=== PATIENT | female | born 1990 | race Caucasian/White ===

== ENCOUNTER 2017-01-02 09:08 | Emergency (ER) | payer OTHER ==
[~2017-01-02] VITALS: Ht 154.9 cm; Wt 64.9 kg
[2017-01-02 09:13] VITALS: TEMP 36.7; Ht 154.9 cm; Wt 64.9 kg
--- NOTE | 2017-01-02 09:58 | DIAGNOSTIC IMAGING REPORT ---
CHEST ONE VIEW PORTABLE CLINICAL HISTORY: chest pain dyspnea COMPARISON STUDY: No previous studies for comparison. FINDINGS: The bones soft tissues and hemidiaphragms are normal. The cardiomediastinal silhouette is normal. The lungs are clear. The pulmonary vasculature is normal. IMPRESSION: Negative chest. Electronically signed by: Ross Dong M.D. 01/02/2017 9:57 AM Dictated Date/Time: 01/02/2017 9:57 AM
[2017-01-02 10:41] LABS: HEMATOCRIT 36.7 % (37-47); MEAN CELL VOLUME 90.4 fL (80-100); MEAN CORPUSCULAR HEMOGLOBIN 31.8 pg (25-34); MEAN CORPUSCULAR HGB CONC 35.1 g/dl (32-36); MEAN PLATELET VOLUME 9.3 fL (7.4-10.4); PLATELET COUNT 310 K/uL (130-400); RED BLOOD COUNT 4.06 M/uL (4.2-5.4); WHITE BLOOD COUNT 11.95 K/uL (4.8-10.8)
[2017-01-02 10:54] LABS: INR 1.1 (0.9-1.1); PROTHROMBIN TIME (PATIENT) 11.9 SECONDS (9.0-12.0)
[2017-01-02 11:02] LABS: ALT/SGPT 17 U/L (12-78); AST/SGOT 7 U/L (15-37); BLOOD UREA NITROGEN 8 mg/dl (7-18); BUN/CREATININE RATIO 12.9 (10-20); CALCIUM 9.1 mg/dl (8.5-10.1); CARBON DIOXIDE 28 mmol/L (21-32); CHLORIDE 106 mmol/L (98-107); CREATININE 0.63 mg/dl (0.60-1.20); GLUCOSE 75 mg/dl (70-99); POTASSIUM 3.9 mmol/L (3.5-5.1); SODIUM 141 mmol/L (136-145)
[2017-01-02 11:06] LABS: ALB/GLOB RATIO 1.1 (0.9-2); ALKALINE PHOSPHATASE 71 U/L (45-117)
--- NOTE | 2017-01-02 12:24 | EMERGENCY ROOM VISIT NOTE ---
History Report prepared by Dickson: Kristen Spicer Under the Supervision of: Dr. Vlad Mendoza D.O. First contact with patient: 09:57 Chief Complaint: CARDIAC ASSESSMENT Stated Complaint: CHEST PAIN,RAPID HEARTBEAT History of Present Illness The patient is a 26 year old female who presents to the Emergency Room with complaints of persistent chest pain that began Friday. She currently rates her discomfort as a 2/10 in severity and she describes her pain as a jabbing pain. The patient states that since Friday she has been experiencing chest pain and tachycardia. She states that she consulted her PCP today and was instructed to come to the emergency department for further work up. The patient denies any history of blood clots or family history of blood clots. She denies any active medical problems. The patient denies any abdominal pain today. Source of History: patient Onset: Friday Position: chest Symptom Intensity: 2/10 Quality: other (jabbing) Timing: other (persistent) Associated Symptoms: No abdominal pain Note: Associated Symptoms: tachycardia Review of Systems See HPI for pertinent positives & negatives. A total of 10 systems reviewed and were otherwise negative. Past Medical & Surgical Medical Problems: (1) Bronchitis Surgical Problems: (1) Previous section Family History Diabetes mellitus Hypertension Social History Smoking Status: Former Smoker Alcohol Use: none Drug Use: none Marital Status: single Housing Status: lives alone Occupation Status: employed Current/Historical Medications No Active Prescriptions or Reported Meds Allergies Coded Allergies: Metronidazole (Verified Allergy, Unknown, PANREATITIS, 01/02/17) Nitrofuran Derivatives (Verified Allergy, Unknown, PANCREATITIS, 01/02/17) Physical Exam Vital Signs Date Time Temp Pulse Resp B/P Pulse Ox O2 Delivery O2 Flow Rate FiO2 01/02/17 10:48 66 20 93/51 100 Room Air 01/02/17 10:35 98 Room Air 01/02/17 10:35 98 01/02/17 10:25 69 01/02/17 09:13 36.7 70 16 100/66 97 Room Air Physical Exam CONSTITUTIONAL/VITAL SIGNS: Reviewed / noted above. GENERAL: Non-toxic in appearance. INTEGUMENTARY: Warm, dry, and [place]. HEAD: Normocephalic. EYES: without scleral icterus or trauma. ENT/OROPHARYNX: clear and moist. LYMPHADENOPATHY/NECK: Is supple without lymphadenopathy or meningismus. RESPIRATORY: Lungs clear and equal. CARDIOVASCULAR: Regular rate and rhythm. GI/ABDOMEN: Soft and nontender. No organomegaly or pulsatile mass. No rebound or guarding. Normal bowel sounds. EXTREMITIES: Warm and well perfused. BACK: No CVA tenderness. NEUROLOGICAL: Intact without focal deficits. PSYCHIATRIC: normal affect. MUSCULOSKELETAL: Normally developed with good muscle tone. Medical Decision & Procedures ER Provider Diagnostic Interpretation: X ray results and stated below per my interpretation and radiology interpretation. CHEST ONE VIEW PORTABLE CLINICAL HISTORY: chest pain dyspnea COMPARISON STUDY: No previous studies for comparison. FINDINGS: The bones soft tissues and hemidiaphragms are normal. The cardiomediastinal silhouette is normal. The lungs are clear. The pulmonary vasculature is normal. IMPRESSION: Negative chest. Electronically signed by: Ross Dong M.D. 01/02/2017 9:57 AM Dictated Date/Time: 01/02/2017 9:57 AM Laboratory Results 01/02/17 10:11 01/02/17 10:11 Test 01/02/17 10:11 01/02/17 10:23 Red Blood Count 4.06 M/uL (4.2-5.4) Mean Corpuscular Volume 90.4 fL (80-100) Mean Corpuscular Hemoglobin 31.8 pg (25-34) Mean Corpuscular Hemoglobin Concent 35.1 g/dl (32-36) RDW Standard Deviation 40.5 fL (36.4-46.3) RDW Coefficient of Variation 12.3 % (11.5-14.5) Mean Platelet Volume 9.3 fL (7.4-10.4) Prothrombin Time 11.9 SECONDS (9.0-12.0) Prothromb Time International Ratio 1.1 (0.9-1.1) Activated Partial Thromboplast Time 26.6 SECONDS (21.0-31.0) Partial Thromboplastin Ratio 1.0 D-Dimer < 190 ug/L FEU (0-500) Anion Gap 7.0 mmol/L (3-11) Est Creatinine Clear Calc Drug Dose 116.7 ml/min Estimated GFR () 143.5 Estimated GFR (Non- 123.8 BUN/Creatinine Ratio 12.9 (10-20) Calcium Level 9.1 mg/dl (8.5-10.1) Total Bilirubin 0.3 mg/dl (0.2-1) Aspartate Amino Transf (AST/SGOT) 7 U/L (15-37) Alanine Aminotransferase (ALT/SGPT) 17 U/L (12-78) Alkaline Phosphatase 71 U/L (45-117) Total Creatine Kinase 43 U/L (26-192) Creatine Kinase MB < 0.5 ng/ml (0.5-3.6) Creatine Kinase MB Ratio (0-3.0) Total Protein 7.7 gm/dl (6.4-8.2) Albumin 4.0 gm/dl (3.4-5.0) Globulin 3.7 gm/dl (2.5-4.0) Albumin/Globulin Ratio 1.1 (0.9-2) Bedside Troponin I 0.000 ng/ml (0-0.045) Laboratory results as stated above per my review. ECG Indication: chest pain Rate (beats per minute): 63 Rhythm: normal sinus Findings: no acute ischemic change, no ectopy ED Course 0959: Previous medical records were reviewed. The patient was evaluated in room B6. A complete history and physical examination was performed. 1217: I reevaluated the patient and she is doing well. I discussed the exam findings with the patient and I discussed the treatment plan. She verbalized complete understanding and agreement. She is ready to go home. Medical Decision the differential was considered includes acute myocardial infarction, acute coronary syndrome, myocarditis, pericarditis, pericardial effusions /tamponade, esophageal perforation, thoracic aortic dissection, pulmonary embolism, pneumonia, pneumothorax, pancreatitis, shingles, acute cholecystitis, perforated abdominal viscus. This is a 26-year-old female who presents to the ED with a chief complaint of chest pain. The patient describes her chest pain as a intermittent jolt once in a while. She also reports some palpitations intermittently. Details listed above. Vital signs are normal. Her physical exam was normal. She is no distress. EKG shows a normal sinus rhythm. CBC, complete metabolic panel are normal. D-dimer and troponin are negative. Chest x-ray did not show acute disease. The patient was told the results test per cheese felt to be stable for discharge and outpatient follow-up. Scribe Attestation The scribe's documentation has been prepared under my direction and personally reviewed by me in its entirety. I confirm that the note above accurately reflects all work, treatment, procedures, and medical decision making performed by me. Departure Information Prescriptions No Active Prescriptions or Reported Meds Referrals Daniele Monge M.D. (MEDICAL) (PCP) Patient Instructions My [facility]
[2017-01-02 12:46] VITALS: BP 96/70; PULSE 68; O2SAT 100
[2017-01-05 19:31] LABS: TSI 81 % baseline (<140)
== END 2017-01-02 12:48 | disposition home or self-care (01) ==
LOC: C.EDB 09:10
DX: R07.9 Chest pain, unspecified (principal); Z87.891 Personal history of nicotine dependence; Z83.3 Family history of diabetes mellitus; Z82.49 Family history of ischemic heart disease and other diseases of the circulatory system

== ENCOUNTER 2017-05-10 19:27 | Emergency (ER) | payer OTHER ==
[~2017-05-10] VITALS: Ht 154.9 cm; Wt 64.4 kg
[2017-05-10 19:29] VITALS: BP 113/50; PULSE 63; TEMP 36.8; O2SAT 99; Ht 154.9 cm; Wt 64.4 kg
[2017-05-10] MEDS ORDERED: DIPHTHERIA/TETANUS/PERTUSSIS 0.5 ML SYR/VIAL IM. ONE (19:45)
--- NOTE | 2017-05-10 19:56 | EMERGENCY ROOM VISIT NOTE ---
ED Visit Note First contact with patient: 19:36 Chief Complaint: Puncture wound to the left little finger. History of Present Illness: Patient is a 26-year-old white female who ambulates into the ED accompanied by her daughter complaining of a puncture wound to the left little finger and the need to have her tetanus updated. Patient reports approximately 2 hours ago she sustained a puncture wound to the distal phalanxes of the left ring finger. She reports she punctured her finger with a glenda metal spur off a nut. She did clean the wound with soap and water prior to arrival at the hospital. She does report she contacted her family doctor encouraged to come to the emergency department have her tetanus updated. Currently she is not having any symptoms associated with her injury including pain. She has not taken any medications for pain prior to arrival at the hospital. She denies any associated symptoms. Review of Systems: As noted above in history of present illness. Past Medical History: Bronchitis, unspecified stomach disorder; activity evaluation, status post section 2. Current Medications: Patient denies. Allergies to Medications: Flagyl, nitrofuran. Social History: Patient is not employed; she feels safe in her home environment ; she denies tobacco and alcohol use. Tetanus Immunization Status: Greater than 10 years. Physical Examination: Vital Signs: Date Time Temp Pulse Resp B/P (MAP) Pulse Ox O2 Delivery O2 Flow Rate FiO2 05/10/17 19:29 36.8 63 16 113/50 99 Room Air GENERAL: 26-year-old female in no acute chest, nontoxic-appearing, afebrile and hemodynamically stable. NEUROLOGICAL: Awake, alert and oriented to person, place and time. Answering questions appropriately and following commands. SKIN: Warm, dry and pink. Left Little Finger: Superficial puncture wound was noted to the tip of the finger with no active bleeding. There is no signs of infection. LEFT LITTLE FINGER: No gross bony deformity. No tenderness, swelling. No tenderness over the PIP or DIP joints. Full range of motion of the finger. Throughout the finger the skin was warm and pink and capillary refill is brisk. ED Course: Patient is assessed as noted above. Patient's medication list was reviewed. Patient was given an Adacel booster. Patient was educated about today's findings and instructed on her treatment plan ; she verbalizes understanding and agreement with this plan. Clinical Impression: Left little finger puncture wound. Disposition: Patient discharged home in stable condition; prior to departure she was reassessed and remained pain and symptom-free. Plan: Comfort measures, wound care and signs of infection were discussed with the patient. Patient was encouraged to follow-up with family physician or return to the ED front control pain, signs of infection or any new/concerning symptoms.
== END 2017-05-10 20:00 | disposition home or self-care (01) ==
LOC: C.EDB 19:28 → C.EDD 20:00
DX: S61.237A Puncture wound without foreign body of left little finger without damage to nail, initial encounter (principal); Z23 Encounter for immunization; W45.8XXA Other foreign body or object entering through skin, initial encounter

== ENCOUNTER → 2017-08-19 | Outpatient (CLI) | payer OTHER | END | disposition home or self-care (01) | LOC: C.PAPS 16:43 | PROVIDERS: ATTEND Physician Assistant | DX: Z12.4 Encounter for screening for malignant neoplasm of cervix (principal) ==

== ENCOUNTER 2018-03-11 00:36 | Emergency (ER) | payer OTHER ==
[~2018-03-11] VITALS: Ht 154.9 cm; Wt 72.4 kg
[2018-03-11 00:40] VITALS: TEMP 36.3; Ht 154.9 cm; Wt 72.4 kg
[2018-03-11] MEDS ORDERED: PRLSR20 PO (01:12)
--- NOTE | 2018-03-11 01:23 | EMERGENCY ROOM VISIT NOTE ---
History Report prepared by Dickson: Braden Bojorquez Under the Supervision of: Dr. Marianne Montoya D.O. First contact with patient: 01:01 Chief Complaint: DIZZY Stated Complaint: DIZZY,DIFFICULTY BREATHING History of Present Illness The patient is a 27 year old female who presents to the Emergency Room with complaints of a resolved episode of difficulty breathing that occurred prior to arrival. The patient states she felt fine all day today. She reports she suddenly could not breathe and felt like she was choking. The patient notes she was lying in bed when this happened. She states she has a history of silent reflux that causes her heart to start pounding. The patient report she takes medication for her reflux. She notes she also has a history of palpitations. The patient states she tried to get out of bed and take her mind off things. She reports she became very dizzy and thought her legs were going to give out. The patient notes she has a history of mild anxiety and seasonal allergies. She states her son is currently sick at home with seasonal allergies that is triggering his asthma. The patient reports she had mild back itchiness from bug bites. She notes her LNMP was a week ago, and she is sexually active. The patient denies changing medications, trouble eating, trouble drinking, alcohol use, drug use, throat swelling, and difficulty swallowing. 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 A total of 10 systems reviewed and were otherwise negative. Past Medical & Surgical Medical Problems: (1) Bronchitis Surgical Problems: (1) Previous section Family History Diabetes mellitus Hypertension Social History Smoking Status: Never Smoker Alcohol Use: none Drug Use: none Marital Status: single Housing Status: lives with significant other Occupation Status: employed Current/Historical Medications Scheduled Omeprazole (Prilosec), 20 MG PO DAILY Allergies Coded Allergies: Metronidazole (Verified Allergy, Unknown, PANREATITIS, 03/11/18) Nitrofuran Derivatives (Verified Allergy, Unknown, PANCREATITIS, 03/11/18) Physical Exam Vital Signs Date Time Temp Pulse Resp B/P (MAP) Pulse Ox O2 Delivery O2 Flow Rate FiO2 03/11/18 02:50 68 18 104/62 99 03/11/18 01:54 63 17 91/54 98 Room Air 60 96/55 62 93/56 03/11/18 01:54 62 17 93/55 98 Room Air 03/11/18 00:40 36.3 67 18 115/78 100 Room Air Physical Exam HEENT: Head - normocephalic and atraumatic Pupils are equal, round, and reactive to light. Extraocular eye muscles are intact, and sclera are anicteric. Nose - moist nasal mucosa without discharge. Mouth - moist buccal mucosa. Oropharynx is nonerythematous and there is no tonsillar exudate or edema noted. Neck: Supple; no JVD, nuchal rigidity, cervical lymphadenopathy, or auscultated bruits. Heart: Regular rate and rhythm. There is a normal S1 and S2 with no murmurs, clicks, or gallops appreciated. Lungs: Clear to auscultation bilaterally with no wheezes, rales, or rhonchi. Abdomen: Soft, completely nontender, nondistended, with good bowel sounds. There are no palpable pulsatile masses or hepatosplenomegaly. There is no guarding, rigidity, or rebound noted. Extremities: No evidence of cyanosis, clubbing, or edema. There are easily palpable peripheral pulses. Skin: warm and dry with good turgor and no rashes. Medical Decision & Procedures Laboratory Results 03/11/18 01:40 03/11/18 01:40 Test 03/11/18 01:40 Red Blood Count 4.14 M/uL (4.2-5.4) Mean Corpuscular Volume 90.3 fL (80-100) Mean Corpuscular Hemoglobin 31.9 pg (25-34) Mean Corpuscular Hemoglobin Concent 35.3 g/dl (32-36) RDW Standard Deviation 40.9 fL (36.4-46.3) RDW Coefficient of Variation 12.4 % (11.5-14.5) Mean Platelet Volume 8.9 fL (7.4-10.4) Urine Color YELLOW Urine Appearance CLEAR (CLEAR) Urine pH 6.5 (4.5-7.5) Urine Specific [place] 1.006 (1.000-1.030) Urine Protein NEG (NEG) Urine Glucose (UA) NEG (NEG) Urine Ketones NEG (NEG) Urine Occult Blood NEG (NEG) Urine Nitrite NEG (NEG) Urine Bilirubin NEG (NEG) Urine Urobilinogen NEG (NEG) Urine Leukocyte Esterase NEG (NEG) Urine Test NEG (NEG) Anion Gap 6.0 mmol/L (3-11) Est Creatinine Clear Calc Drug Dose 116.5 ml/min Estimated GFR () 140.3 Estimated GFR (Non- 121.1 BUN/Creatinine Ratio 17.1 (10-20) Calcium Level 9.3 mg/dl (8.5-10.1) Thyroid Stimulating Hormone (TSH) 2.070 uIu/ml (0.300-4.500) Laboratory results per my review. ECG Per My Interpretation Indication: SOB/dyspnea Rate (beats per minute): 67 Rhythm: normal sinus Findings: no acute ischemic change, no ectopy ED Course 0117: Past medical records reviewed. The patient was evaluated in room A10. A complete history and physical exam was performed. A 12-lead EKG was obtained as described above. 0154: Orthostatic vital signs were performed. The patient's systolic blood pressure stayed in the mid-90s, and she was asymptomatic. 0243: Upon reevaluation, the patient is resting and feeling better. I discussed findings and results with her. She verbalized agreement of the treatment plan. The patient was discharged home. Medical Decision The patient is a 27 year old female who presents to the ED with an episode of shortness of breath. Differential diagnosis includes PE, GERD, anxiety, palpitations, thyroid dysfunction. Lab results show: WBC of 11.3, stable H&H, normal TSH, normal renal function, normal glucose. Negative . Normal UA. This is a 27-year-old female patient presents to the emergency department with an episode of palpitations, dizziness and shortness of breath. It seems that it may have started with an episode of GERD. Symptoms have resolved while here in the emergency department. Vital signs are stable. The patient was encouraged to continue to use her omeprazole and follow a strict diet over the next couple of days. If she develops any increased shortness of breath, chest pain or worsening dizziness, she should return to the emergency department. Otherwise, the patient is to follow-up with her PCP in the next 48 hours if the symptoms continue Medication Reconcilliation Current Medication List: was personally reviewed by me Blood Pressure Screening Patient's blood pressure: Normal blood pressure Blood pressure disposition: Did not require urgent referral Impression Primary Impression: Dizziness Scribe Attestation The scribe's documentation has been prepared under my direction and personally reviewed by me in its entirety. I confirm that the note above accurately reflects all work, treatment, procedures, and medical decision making performed by me. Departure Information Dispostion Home / Self-Care Referrals Daniele Monge M.D. (MEDICAL) (PCP) Forms HOME CARE DOCUMENTATION FORM, IMPORTANT VISIT INFORMATION Patient Instructions ED Dizziness O, My [facility] Additional Instructions Rest. Take plenty of clear liquids Follow up with PCP if episodes persist
[2018-03-11 01:53] LABS: HEMATOCRIT 37.4 % (37-47); HEMOGLOBIN 13.2 g/dL (12.0-16.0); MEAN CELL VOLUME 90.3 fL (80-100); MEAN CORPUSCULAR HEMOGLOBIN 31.9 pg (25-34); MEAN CORPUSCULAR HGB CONC 35.3 g/dl (32-36); MEAN PLATELET VOLUME 8.9 fL (7.4-10.4); PLATELET COUNT 303 K/uL (130-400); RED CELL DISTRIBUTION WIDTH CV 12.4 % (11.5-14.5); RED CELL DISTRIBUTION WIDTH SD 40.9 fL (36.4-46.3); WHITE BLOOD COUNT 11.33 K/uL (4.8-10.8)
[2018-03-11 02:13] LABS: CALCIUM 9.3 mg/dl (8.5-10.1); CREATININE 0.66 mg/dl (0.60-1.20); POTASSIUM 3.5 mmol/L (3.5-5.1)
[2018-03-11 02:50] VITALS: BP 104/62; PULSE 68; O2SAT 99
== END 2018-03-11 02:51 | disposition home or self-care (01) ==
LOC: C.EDB 00:37 → C.EDA 02:51
DX: R42 Dizziness and giddiness (principal); R06.02 Shortness of breath; R00.2 Palpitations; K21.9 Gastro-esophageal reflux disease without esophagitis; Z88.1 Allergy status to other antibiotic agents

== ENCOUNTER 2019-05-10 05:27 | Inpatient (IN) ==
--- NOTE | 2019-05-04 15:30 | PAT Medication Instructions ---
Medication Instructions Date of Service May 04, 2019 Home Medications PNV cmb#95-ferrous fumarate-FA [] 1 tab PO QAM ferrous sulfate [iron] 325 mg PO DAILY omeprazole 20 mg PO QAM DO NOT take the morning of surgery PNV cmb#95-ferrous fumarate-FA [] 1 tab PO QAM ferrous sulfate [iron] 325 mg PO DAILY Take morning of surgery With a small sip of water, OTHERWISE NOTHING TO EAT OR DRINK AFTER MIDNIGHT: omeprazole 20 mg PO QAM Other Notes If you have any questions please call us at [phone] or [phone] or [phone] or [phone]
--- NOTE | 2019-05-05 09:51 | Anesthesiology Consultation ---
Date of Service May 05, 2019 Assessment & Plan (1) Encounter for pre-operative examination: Patient reports having prolonged numbness over buttocks area for eight months following second C/S (done with neuraxial block). It did eventually resolve completely. Patient encouraged to follow up with anesthesia JAY if experiencing any numbness after hospital discharge. Chart Review Chart Review: Acceptable Risk for Surgery and Patient seen in Pre Admission Testing Teaching & Discussion Instructed NPO after midnight before surgery, except medications with 15 cc of water. Medication instructions provided according to the PAT guidelines. History Surgery Operation Date: 05/10/19 07:30 Proposed Procedures p Section in LD - Ju Berry MD, FACOG Height/Weight Height: 5 ft 1 in Weight: 84.368 kg Allergies Allergy/AdvReac Type Severity Reaction Status Date / Time metronidazole Allergy Unknown PANREATITIS Verified 04/28/19 08:00 Nitrofuran Analogues Allergy Unknown PANCREATITI Verified 04/28/19 08:00 S Medications Home Medications Medication Instructions Recorded Confirmed Last Taken PNV cmb#95-ferrous fumarate-FA 1 tab PO QAM 04/28/19 04/28/19 Unknown [] ferrous sulfate [iron] 325 mg PO DAILY 04/28/19 04/28/19 Unknown omeprazole 20 mg PO QAM 04/28/19 04/28/19 Unknown Past Medical History Medical History GERD (gastroesophageal reflux disease) History of tachycardia PT STATES SHE HAD SOME "IRREGULAR HEARTBEATS" AND TACCHYCARDIA. HAD A WORKUP DONE AND WAS TOLD NOTHING TO WORRY ABOUT. Exercise / Class Metabolic Activity II 4-5 Yardwork/Stairs/Walk up hill Past Surgical History Surgical History History of tonsillectomy and adenoidectomy Hx of section X2. With first delivery was not dilating and concerning heart tones/D cells Past Anesthesia History No Family Hx of Anesthesia Complications and Other Patient reports having prolonged numbness over buttocks area for eight months following second C/S (done with neuraxial block). It did eventually resolve completely. Patient encouraged to follow up with anesthesia JAY if experiencing any numbness after hospital discharge. History of PONV No Hx of PONV and No Hx of Motion Sickness Social History Smoking Status: Former smoker Do You Dip or Chew Tobacco: No Smoking End Date: 2014 Hx Alcohol Use: No Hx Substance Use: No Review of Systems Pt denies any recent chest pain, shortness of breath, palpitations, cough, fever or URI. +seasonal allergies Physical Exam Vital Signs BP: 96/65 P: 80bpm SPO2: 96% RA T: 98.2 F R: 16 ENMT Mouth: no dental restorations, no chipped teeth and no loose teeth Thyromental Distance: > or= 3.5 Finger Breadths (4) Mallampati Class: II Neck normal visual inspection; neck extension not limited Respiratory normal respiratory effort Auscultation: lungs clear to auscultation bilaterally Cardiovascular Rate/Rhythm: regular rate and regular rhythm Heart Sounds: no murmur Extremities: no edema
--- NOTE | 2019-05-05 10:30 | History & Physical Report ---
Date of Service May 05, 2019 Assessment & Plan (1) Previous section complicating , antepartum condition or complication: IUP at 39 weeks presents for repeat C/S. prior C/S x 2. the procedure & risks were reviewed with the patient and all of her questions were answered to her satisfaction. Please see orders for further information. Present on Admission?: Yes History of Present Illness Primary Care Provider: MARY KAY De Leon Patient is a 28 yo white female EDC 05/17/19 who presents at 39 weeks for repeat C/S. First C/s was done for FTP. Second C/S was done as a repeat. This has been uncomplicated. Allergies Allergy/AdvReac Type Severity Reaction Status Date / Time metronidazole Allergy Unknown PANREATITIS Verified 04/28/19 08:00 Nitrofuran Analogues Allergy Unknown PANCREATITI Verified 04/28/19 08:00 S Home Medications Home Medications Medication Instructions Recorded Confirmed Type PNV cmb#95-ferrous fumarate-FA 1 tab PO QAM 04/28/19 04/28/19 History [] ferrous sulfate [iron] 325 mg PO DAILY 04/28/19 04/28/19 History omeprazole 20 mg PO QAM 04/28/19 04/28/19 History Patient History Medical History GERD (gastroesophageal reflux disease) History of tachycardia PT STATES SHE HAD SOME "IRREGULAR HEARTBEATS" AND TACCHYCARDIA. HAD A WORKUP DONE AND WAS TOLD NOTHING TO WORRY ABOUT. Surgical History History of tonsillectomy and adenoidectomy Hx of section X2. With first delivery was not dilating and concerning heart tones/D cells Social History Preferred Language: [place] Communication Ability: Effective Beliefs That Will Affect Care: None marital status: Single Current Living Situation: Family and Significant Other Feels Safe at Home: Yes Safety Concerns: Feels Safe At This Time Smoking Status: Former smoker Do You Dip or Chew Tobacco: No Smoking End Date: 2014 Second Hand Exposure: Yes (LIMITED EXPOSURE) Hx Alcohol Use: No Hx Substance Use: No Review of Systems All systems reviewed & are unremarkable except as noted in HPI & below Physical Exam Constitutional: WD/WN, vitals as above Respiratory: normal respiratory effort, lungs clear to auscultation Cardiovascular: RRR, no murmur, no edema Gastrointestinal (Abdomen): normal bowel sounds, soft, nontender, no hepatosplenomegaly well healed low transverse incision. Musculoskeletal: no calf tenderness. trace pedal edema Genitourinary: OB Exam Abdomen: + fundal height (39 cm), + heart tones (140 BPM) and + vertex cervix exam declined
[2019-05-10] MEDS ORDERED: LACTATED RINGER'S 1,000 ML IV SCH ×4 (05:30→11:23)
[2019-05-10 05:59] LABS: Basophils # (auto) 0.02 K/uL (0-0.2); Basophils % (auto) 0.2 %; Eosinophils # (auto) 0.11 K/uL (0-0.5); Eosinophils % (auto) 0.9 %; Hematocrit (blood only) 31.9 % (37-47); Hemoglobin 10.8 g/dL (12.0-16.0); Immature Granulocytes # (auto) 0.04 K/uL (0.00-0.02); Immature Granulocytes % (auto) 0.3 %; Lymphocytes # (auto) 3.24 K/uL (1.2-3.4); Lymphocytes % (auto) 26.3 %; Mean Corpuscular Volume 93.3 fL (80-100); Mean Platelet Volume 9.4 fL (7.4-10.4); Monocytes # (auto) 1.05 K/uL (0.11-0.59); Monocytes % (auto) 8.5 %; Neutrophils # (auto) 7.88 K/uL (1.4-6.5); Neutrophils % (auto) 63.8 %; Platelet Count 250 K/uL (130-400); RDW Coefficient of Variation 13.8 % (11.5-14.5); RDW Standard Deviation 46.9 fL (36.4-46.3); Red Blood Count 3.42 M/uL (4.2-5.4); White Blood Count 12.34 K/uL (4.8-10.8)
[2019-05-10] MEDS ORDERED: CEFAZOLIN 2,000 MG in SYRINGE 0 ML IV SCH (06:00)
[2019-05-10] MEDS ORDERED: CITRIC ACID/SODIUM CITRATE 15 ML UDC PO SCH ×2 (06:00)
[2019-05-10 06:02] LABS: Mean Corpuscular Hgb Conc 33.9 g/dL (32-36)
--- NOTE | 2019-05-10 07:11 | History & Physical Bridge Note ---
Date of Service May 10, 2019 History & Physical Bridge Note I have examined the patient, reviewed the History & Physical and in the interval since the performance of the History & Physical I have noted the following changes of clinical significance: no changes noted
[2019-05-10] MEDS ORDERED: MoRPHine SULFATE PF 1 MG/ML 10 ML AMP/VIAL ONE (07:42)
[2019-05-10] MEDS ORDERED: NALOXONE HCL 1 MG in SODIUM CHLORIDE 0.9% 1000ML 1,000 ML IV PRN (07:52)
[2019-05-10] MEDS ORDERED: MoRPHine SULFATE PF 1 MG/ML 10 ML AMP/VIAL INT SPINAL ONE (07:52)
[2019-05-10] MEDS ORDERED: NALOXONE HCL 0.08 MG in SYRINGE 1.8 ML IV PRN (07:52)
[2019-05-10] MEDS ORDERED: MEPERIDINE HCL 25 MG/ML CARP IV PRN (07:52)
[2019-05-10] MEDS ORDERED: PROMETHAZINE HCL 12.5 MG in SODIUM CHLORIDE 0.9% 50 ML IV PRN (07:52)
[2019-05-10] MEDS ORDERED: ePHEDrine sulfate 50 MG/ML AMP IV PRN (07:52)
[2019-05-10] MEDS ORDERED: NALBUPHINE HCL INJ 10 MG/ML AMP IV PRN (07:52)
[2019-05-10] MEDS ORDERED: ONDANSETRON INJ 2 MG/ML 2 ML VIAL IV PRN ×2 (07:52→11:23)
[2019-05-10] MEDS ORDERED: LACTATED RINGER'S 500 ML IV PRN (07:52)
[2019-05-10] MEDS ORDERED: NALOXONE HCL 0.4 MG/1 ML VIAL/CARP IV PRN (07:52)
[2019-05-10] MEDS ORDERED: DiphenhydrAMINE HCL 50 MG/ML VIAL IV PRN ×2 (07:52→11:23)
[2019-05-10] MEDS ORDERED: DC INTRASPINAL MORPHINE SCH (08:00)
[2019-05-10] MEDS ORDERED: SODIUM CHLORIDE 0.9% 1000ML 1,000 ML IV SCH (08:00)
[2019-05-10] MEDS ORDERED: NO NARCOTICS OR SEDATIVES SCH (08:00)
[2019-05-10] MEDS ORDERED: PROPOFOL IV EMULSION 10 MG/ML 20 ML VIAL IV ONE (08:17)
[2019-05-10] MEDS ORDERED: SUCCINYLCHOLINE CHLORIDE 20 MG/ML 10 ML VIAL ONE (08:17)
[2019-05-10] MEDS ORDERED: METOCLOPRAMIDE HCL INJ 5 MG/ML 2 ML VIAL ONE (08:17)
[2019-05-10] MEDS ORDERED: PHENYLEPHRINE 100MCG/ML 5ML SYR ONE (08:17)
[2019-05-10] MEDS ORDERED: ePHEDrine sulfate 50 MG/ML SYR ONE (08:17)
[2019-05-10] MEDS ORDERED: ONDANSETRON INJ 2 MG/ML 2 ML VIAL ONE (08:17)
[2019-05-10] MEDS ORDERED: OXYTOCIN 10 UNITS/ML VIAL ONE ×3 (08:17→08:49)
[2019-05-10] MEDS ORDERED: SUPERCREAM 0.870% 15 GM JAR EXT PRN ×2 (08:54→11:23)
[2019-05-10] MEDS ORDERED: MAGNESIUM HYDROXIDE SUSP 30 ML UDC PO PRN ×2 (08:54→11:23)
[2019-05-10] MEDS ORDERED: DIPHTHERIA/TETANUS/PERTUSSIS 0.5 ML SYR/VIAL IM ONE (08:54)
[2019-05-10] MEDS ORDERED: SENNA 8.6 MG TAB PO PRN ×2 (08:54→11:23)
[2019-05-10] MEDS ORDERED: BENZOCAINE 20% AER SPR 82.5 GM CAN EXT PRN ×2 (08:54→11:23)
[2019-05-10] MEDS ORDERED: HYDROCORTISONE ACETATE 25 MG SUPP PR PRN ×2 (08:54→11:23)
--- NOTE | 2019-05-10 08:54 | Post Operative Brief Note ---
Immediate Post Op Note v1 Date of Surgery May 10, 2019 Pre & Post Diagnosis Operation Date: 05/10/19 07:30 Pre-Op Diagnosis: Repeat section Post-Op Diagnosis: Repeat section for living female child at 0819 Procedure Operation Date: 05/10/19 07:30 Actual Procedures p Section in LD for living female child at 0819 - Ju Richardson MD, FACOG Surgeon Ju Berry MD, FACOG Shift Supervisor Rn Kinjal Wilhelm DO, Carlos Dan MDSII Estimated Blood Loss 600 Findings Consistent with Post-Op Diagnosis Drains Dillard Catheter (dillard inserted after spinal without difficulty. Draining clear yellow urine; urine output to be monitored by anesthesia intraoperatively)
[2019-05-10] MEDS: KETOROLAC 30 MG/ML VIAL IV PRN ×2 (10:37→20:40)
[2019-05-10] MEDS ORDERED: OXYCODONE/ACETAMINOPHEN 5mg/325mg TAB PO PRN (11:23)
[2019-05-10] MEDS ORDERED: PROMETHAZINE HCL 25 MG in SODIUM CHLORIDE 0.9% 50 ML IV PRN (11:23)
[2019-05-10] MEDS ORDERED: OXYTOCIN 30 UNITS in LACTATED RINGER'S 1,000 ML IV SCH (11:23)
[2019-05-10] MEDS ORDERED: IBUPROFEN 600 MG TAB PO PRN (11:23)
[2019-05-10] MEDS ORDERED: KETOROLAC 30 MG/ML VIAL IV PRN (11:23)
--- NOTE | 2019-05-10 12:13 | Operative Report ---
DATE OF OPERATION: 05/10/2019 SURGEON: Ju Richardson MD. ASSISTANTS: Kinjal Wilhelm DO and Carlos Dan, medical student year-2. PREOPERATIVE DIAGNOSES: Intrauterine at 39 weeks, prior section x2. POSTOPERATIVE DIAGNOSES: Intrauterine at 39 weeks, prior section x2. Delivery of a viable female , 6 pounds 9 ounces, Apgars 8 and 8. PRINCIPAL PROCEDURE: Repeat low transverse section. ANESTHESIA: Subarachnoid block. BLOOD LOSS: 600 mL. HISTORY: The patient is a 28-year-old 3, para 2-0-0-2, white female, EDC of 05/17/2019 who presents at 39 weeks for repeat section. First section was done because of failure to progress for delivery of a 5-pound 5-ounce infant. Her second was done as a repeat. She is requesting repeat section, understands the risks of procedure and is willing to proceed. GROSS FINDINGS: Uterus is gravid and consistent with a term in size. Ovaries and fallopian tubes are grossly normal. There was 1 small omental adhesion to the anterior abdominal wall that was lysed during the procedure. PROCEDURE DESCRIPTION: After the patient received adequate subarachnoid block, she was prepped and draped in usual sterile fashion. A low transverse skin incision was made through a prior scar and carried to the fascia with the same scalpel. The fascial incision was then extended with Rose scissors. The edges were grasped with Danie clamps and the underlying rectus muscles bluntly and sharply dissected off the overlying fascia. The rectus muscles were then bluntly divided in the midline and the peritoneum was also entered bluntly. Rest of the rectus muscles were divided using Metzenbaum scissors. The bladder was then taken down off the anterior surface of the uterus with Metzenbaum scissors and placed behind the bladder blade. The lower uterine segment was noted to be quite thin. It was entered with a scalpel and extended transversely. Clear fluid was obtained upon entering the uterine cavity. The infant was delivered from the vertex presentation with moderate fundal pressure and the rest of the infant delivered easily. The cord was clamped and cut. The infant was then handed off to Dr. Lomeli who was in attendance as electric milkers installer. After cord blood was obtained, the placenta was expressed intact with a 3-vessel cord. The uterine cavity was explored and found to be free of any placental tissue or membranes. The uterus was then closed in a running locking imbricating fashion in 2 layers with 0 Monocryl. Bleeding on the left corner of the incision was controlled with a oxrory-sy-zufbr stitch of the same. Hemostasis was noted to be excellent. Posterior cul-de-sac was irrigated with normal saline. The anterior cul-de-sac was irrigated as well. The incision continued to have excellent hemostasis. The gutters were explored and found to be free of any placental tissue, clot or membranes. The uterus was then placed back inside the abdominal cavity. Hemostasis continued to be excellent of the uterine incision. The rectus muscles were then brought together on the midline with individual stitches of 0 Monocryl. Fascia was closed in a running fashion with 0 Vicryl. After irrigating the adipose layer, skin edges were reapproximated using a subcuticular stitch of 4-0 Vicryl. Urine was clear at the end of the case. Mother and were doing well after delivery. There was spontaneous crying and the infant was moving all 4 limbs upon delivery as well. I attest to the content of the Intraoperative Record and any orders documented therein. Any exception s are noted below.
[2019-05-10] MEDS: PANTOprazole 40 MG TAB PO SCH (12:17)
[2019-05-10] MEDS: SIMETHICONE 80 MG CHEW PO SCH ×3 (12:17→20:39)
--- NOTE | 2019-05-10 12:58 | Anesthesiology Progress Note ---
Date of Service May 10, 2019 Anesthesia Post Procedure Vital Signs Vital Signs: Temp Pulse Pulse Resp BP BP Pulse Ox 05/10/19 12:25 78 18 99/61 L 100 05/10/19 11:25 36.5 C 72 18 106/64 100 05/10/19 11:01 69 98/55 L 05/10/19 11:00 79 18 99 05/10/19 10:55 79 100 05/10/19 10:51 67 89/57 L 05/10/19 10:50 70 100 05/10/19 10:45 74 99 05/10/19 10:41 60 95/54 L 05/10/19 10:40 65 100 05/10/19 10:35 63 100 05/10/19 10:31 84 102/57 L 05/10/19 10:30 90 18 98 05/10/19 10:25 72 99 05/10/19 10:21 87 111/64 05/10/19 10:20 81 98 05/10/19 10:15 83 99 05/10/19 10:11 82 107/63 05/10/19 10:10 79 100 05/10/19 10:05 67 100 05/10/19 10:01 73 111/58 L 05/10/19 10:00 83 100 05/10/19 09:55 71 99 05/10/19 09:54 86 104/56 L 05/10/19 09:50 83 18 100 05/10/19 09:45 80 99 05/10/19 09:42 75 105/51 L 05/10/19 09:40 76 18 100 05/10/19 09:35 79 100 05/10/19 09:31 73 90/52 L 05/10/19 09:30 72 18 100 05/10/19 09:25 77 100 05/10/19 09:20 62 18 103/58 L 100 05/10/19 09:15 76 99 05/10/19 09:11 67 98/52 L 05/10/19 09:10 71 18 100 05/10/19 09:05 90 100 05/10/19 09:01 75 97/52 L 05/10/19 09:00 35.8 C L 72 18 100 05/10/19 05:39 36.6 C 16 05/10/19 05:37 92 H 103/58 L Pain Intensity Abdomen: Pain Intensity: 7 Transfer of Care Handoff Completed per policy Notes Mental Status: alert / awake / arousable Patient Amnestic to Procedure: Yes Nausea / Vomiting: adequately controlled Pain: adequately controlled Airway Patency, RR, SpO2: stable & adequate BP & HR: stable & adequate Hydration State: stable & adequate Neuraxial Anesthesia: was administered and sensory block is resolving Anesthetic Complications: no major complications apparent
[2019-05-10] MEDS ORDERED: SIMETHICONE 80 MG CHEW PO SCH (13:00)
[2019-05-10] MEDS: OXYTOCIN 20 UNITS in LACTATED RINGER'S 1,000 ML IV SCH (16:33)
[2019-05-10] MEDS: DOCUSATE SODIUM 100 MG CAP PO SCH (20:39)
[2019-05-10] MEDS ORDERED: DOCUSATE SODIUM 100 MG CAP PO SCH (21:00)
[2019-05-11] MEDS ORDERED: DiphenhydrAMINE HCL 50 MG/ML VIAL IV PRN (01:53)
[2019-05-11] MEDS ORDERED: PROMETHAZINE HCL 25 MG in SODIUM CHLORIDE 0.9% 50 ML IV PRN (01:53)
[2019-05-11] MEDS ORDERED: ONDANSETRON INJ 2 MG/ML 2 ML VIAL IV PRN (01:53)
[2019-05-11] MEDS ORDERED: MEPERIDINE HCL 50 MG/ML CARP IV PRN (01:53)
[2019-05-11] MEDS ORDERED: KETOROLAC 30 MG/ML VIAL IV PRN (01:53)
[2019-05-11] MEDS ORDERED: ZOLPIDEM TARTRATE 5 MG TAB PO PRN (01:53)
[2019-05-11 06:49] LABS: Basophils # (auto) 0.01 K/uL (0-0.2); Basophils % (auto) 0.1 %; Eosinophils # (auto) 0.06 K/uL (0-0.5); Eosinophils % (auto) 0.4 %; Hematocrit (blood only) 28.7 % (37-47); Hemoglobin 9.8 g/dL (12.0-16.0); Immature Granulocytes # (auto) 0.03 K/uL (0.00-0.02); Immature Granulocytes % (auto) 0.2 %; Lymphocytes # (auto) 1.76 K/uL (1.2-3.4); Mean Corpuscular Hgb Conc 34.1 g/dL (32-36); Mean Corpuscular Volume 92.3 fL (80-100); Mean Platelet Volume 9.5 fL (7.4-10.4); Monocytes # (auto) 0.99 K/uL (0.11-0.59); Monocytes % (auto) 7.3 %; Neutrophils # (auto) 10.69 K/uL (1.4-6.5); Platelet Count 207 K/uL (130-400); RDW Standard Deviation 46.2 fL (36.4-46.3); Red Blood Count 3.11 M/uL (4.2-5.4); White Blood Count 13.54 K/uL (4.8-10.8)
--- NOTE | 2019-05-11 07:53 | Obstetrical Progress Note ---
Date of Service May 11, 2019 Assessment & Plan (1) S/P section: POD#1 doing well. No concerns. Routine postop care today. Subjective Ambulation: ambulating normally Voiding: no voiding problems Passing Gas:: Yes Diet Tolerance:: clear liquids Lochia:: Moderate Feeding Type:: bottle feeding POD#1 doing well. Review of Systems All systems reviewed & are unremarkable except as noted in HPI & below Physical Exam Gen: AAOx3 NAD CV: RRR L: CTAB Abd: soft, NTTP. Fundus firm, below umbilicus. Incision CDI. Ext: no edema. EPCs on. Results & Data Vital Signs (Past 12 Hours) Vital Signs Temp Pulse Pulse Resp BP BP Pulse Ox 05/11/19 04:40 36.8 C 58 L 18 95/56 L 05/11/19 01:05 18 98 05/11/19 00:35 36.8 C 66 18 91/55 L 98 05/10/19 23:05 16 98 05/10/19 21:30 18 98 05/10/19 20:30 36.6 C 79 18 100/56 L 97
[2019-05-11] MEDS ORDERED: FERROUS SULFATE 325 MG TAB PO SCH (08:00)
[2019-05-11] MEDS ORDERED: PRENATAL VITAMIN 1 TAB PO SCH (08:00)
[2019-05-11] MEDS: FERROUS SULFATE 325 MG TAB PO SCH (08:11)
[2019-05-11] MEDS: PRENATAL VITAMIN 1 TAB PO SCH (08:11)
[2019-05-11] MEDS: SIMETHICONE 80 MG CHEW PO SCH ×4 (08:11→20:09)
[2019-05-11] MEDS: IBUPROFEN 600 MG TAB PO PRN ×4 (08:11→20:08)
[2019-05-11] MEDS: DOCUSATE SODIUM 100 MG CAP PO SCH ×2 (08:11→20:09)
[2019-05-11] MEDS: OXYTOCIN 20 UNITS in LACTATED RINGER'S 1,000 ML IV SCH ×2 (12:00→16:06)
[2019-05-11] MEDS: LACTATED RINGER'S 1,000 ML IV SCH ×2 (12:00→16:05)
[2019-05-11] MEDS: PANTOprazole 40 MG TAB PO SCH (12:47)
--- NOTE | 2019-05-11 18:02 | Anesthesiology Progress Note ---
Date of Service May 11, 2019 Anesthesia Post Procedure Vital Signs Vital Signs: Temp Pulse Pulse Pulse Resp BP BP 05/11/19 07:20 36.7 C 73 18 102/67 05/11/19 04:40 36.8 C 58 L 18 95/56 L 05/11/19 01:05 18 05/11/19 00:35 36.8 C 66 18 91/55 L 05/10/19 23:05 16 05/10/19 21:30 18 05/10/19 20:30 36.6 C 79 18 05/10/19 19:30 18 05/10/19 18:30 18 BP Pulse Ox 05/11/19 07:20 96 05/11/19 04:40 05/11/19 01:05 98 05/11/19 00:35 98 05/10/19 23:05 98 05/10/19 21:30 98 05/10/19 20:30 100/56 L 97 05/10/19 19:30 97 05/10/19 18:30 97 Pain Intensity Abdomen: Pain Intensity: 6 Notes Mental Status: alert / awake / arousable and participated in evaluation Nausea / Vomiting: adequately controlled Pain: adequately controlled Airway Patency, RR, SpO2: stable & adequate BP & HR: stable & adequate Hydration State: stable & adequate Neuraxial Anesthesia: was administered and sensory block resolved Anesthetic Complications: no major complications apparent and Pt Satisfied with anesthetic care Notes: Patient denies headache. Has been up walking without weakness or residual numbness. Patient encouraged to contact anesthesia for any concerns or new headache.
[2019-05-11] MEDS ORDERED: BISACODYL 5 MG TABEC PO SCH ×2 (20:00)
[2019-05-11] MEDS: OXYCODONE/ACETAMINOPHEN 5mg/325mg TAB PO PRN (23:09)
[2019-05-12 06:50] LABS: Hematocrit (blood only) 29.7 % (37-47); Hemoglobin 9.9 g/dL (12.0-16.0)
[2019-05-12] MEDS ORDERED: BISACODYL 10 MG SUPP PR PRN ×2 (07:00→08:50)
--- NOTE | 2019-05-12 07:35 | Obstetrical Progress Note ---
Date of Service May 12, 2019 Assessment & Plan (1) S/P section: Doing well. PLan d/c. Instructions given. Questions answered. Day #:: 2 Subjective Ambulation: ambulating normally Voiding: no voiding problems Passing Gas:: Yes Diet Tolerance:: regular diet Lochia:: Small Feeding Type:: breast feeding Doing well. Wants to be d/c. Physical Exam Constitutional WD/WN, vitals as above Cardiovascular Extremities: no calf tenderness and no pedal edema Gastrointestinal (Abdomen) soft, nt, nd fundus firm/nt at u incision c/d/i Results & Data Vital Signs (Past 12 Hours) Vital Signs Temp Pulse Resp BP Pulse Ox 05/11/19 23:05 36.7 C 66 18 95/62 L 97 05/11/19 20:00 36.7 C 74 18 100/57 L 97
[2019-05-12] MEDS: PRENATAL VITAMIN 1 TAB PO SCH (08:05)
[2019-05-12] MEDS: DOCUSATE SODIUM 100 MG CAP PO SCH (08:05)
[2019-05-12] MEDS: IBUPROFEN 600 MG TAB PO PRN (08:06)
[2019-05-12] MEDS: OXYCODONE/ACETAMINOPHEN 5mg/325mg TAB PO PRN (08:06)
[2019-05-12] MEDS: FERROUS SULFATE 325 MG TAB PO SCH (08:06)
[2019-05-12] MEDS: SIMETHICONE 80 MG CHEW PO SCH (08:57)
--- NOTE | 2019-05-13 08:57 | Discharge Summary ---
PRINCIPAL DIAGNOSES: Intrauterine at 39 weeks, prior section x2. PRINCIPAL PROCEDURE: Repeat low transverse section. HISTORY OF PRESENT ILLNESS AND HOSPITAL COURSE: The patient is a 28-year-old 3, para 2-0-0-2, white female, EDC of 05/17/2019, who presented at 39 weeks for repeat section. This was done without complications. She had an uncomplicated postop course. She was ambulating and eating regular diet as well as voiding without difficulty on her first postop day. She remained afebrile throughout her hospital stay. Hemoglobin on admission was 10.8 with hematocrit of 31.9. First postop day, hemoglobin 9.8, hematocrit 28.7, and second postop day, hemoglobin 9.9, hematocrit 29.7. She was sent home with the usual postop and instructions. She is to call for a temperature of 101 degrees or higher, heavy vaginal bleeding, burning with urination, increased redness, drainage or pain in her incision, calf tenderness or any other concerns. She was given prescriptions for Percocet 1-2 tablets p.o. q. 4 hours p.r.n. pain, Motrin 600 mg p.o. q. 4 hours p.r.n. pain. She is to be seen in the office in 6 weeks for followup visit.
== END 2019-05-12 10:45 | disposition home or self-care (01) | DRG 788 ==
LOC: 4S1 05:27 → EDSTATUS 09:10 → 4S2 11:10